=== PATIENT | male | born 1945 | race Caucasian/White ===

== ENCOUNTER 2017-08-18 12:24 | Emergency (ER) | payer OTHER ==
[~2017-08-18 12:24] MED LIST: ASPI325T PO; ATEN-100 PO; CARB0.5D16 EACH EYE; FLON0.053; LORA1TAB PO; MELA10CA2 PO; NITR0.4S SL; SIMV40 PO; TAB-TAB PO; TRAZ100 PO
[2017-08-18 12:31] VITALS: BP 145/76; PULSE 70; RESP 20; TEMP 98.6; O2SAT 97
[2017-08-18] MEDS ORDERED: SIMV40TA PO (12:38)
[2017-08-18] MEDS ORDERED: ATEN25TA PO (12:38)
[2017-08-18] MEDS ORDERED: MULTTAB67 PO (12:38)
[2017-08-18] MEDS ORDERED: ASPI-183 PO (12:38)
[2017-08-18] MEDS ORDERED: TRAZ100T10 PO (12:38)
[2017-08-18] MEDS ORDERED: LORA1TAB12 PO (12:38)
[2017-08-18] MEDS ORDERED: GABA300C5 PO (12:38)
[2017-08-18] MEDS ORDERED: MELA10TA2 (12:38)
[2017-08-18] MEDS ORDERED: FLUT50SP EACH NARE (12:38)
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
[2017-08-18] MEDS ORDERED: SODIUM CHLORIDE 0.9% FLUSH 10 ML FLUSH IV FLUSH PRN (13:00)
[2017-08-18] MEDS ORDERED: LIDOCAINE HCL 1% PF 30 ML VIAL INFIL ONE (13:00)
[2017-08-18] MEDS ORDERED: BUPIVACAINE HCL PF 0.5% 10 ML VIAL INFIL ONE (13:00)
[2017-08-18] MEDS ORDERED: LIDOCAINE HCL 1% 50 ML VIAL INFIL ONE (13:00)
[2017-08-18 13:15] VITALS: O2SAT 96
[2017-08-18] MEDS ORDERED: LIDOCAINE HCL 1% PF 10 ML VIAL INFIL ONE (13:15)
[2017-08-18 13:17] LABS: AUTOMATED NEUTROPHIL # 3.2 TH/MM3 (1.8-7.7); BASOPHIL % 0.5 % (0.0-2.0); EOSINOPHIL # 0.1 TH/MM3 (0-0.4); EOSINOPHIL % 2.5 % (0.0-4.0); HEMATOCRIT 38.4 % (39.0-51.0); HEMOGLOBIN 12.5 GM/DL (13.0-17.0); LYMPH % 22.8 % (9.0-44.0); LYMPHOCYTE # 1.1 TH/MM3 (1.0-4.8); MEAN CELL VOLUME 97.7 FL (80.0-100.0); MEAN CORPUSCULAR HEMOGLOBIN 31.9 PG (27.0-34.0); MEAN CORPUSCULAR HGB CONC 32.6 % (32.0-36.0); MEAN PLATELET VOLUME 7.1 FL (7.0-11.0); MONO % 6.9 % (0.0-8.0); MONOCYTE # 0.3 TH/MM3 (0-0.9); NEUT % 67.3 % (16.0-70.0); PLATELET COUNT 113 TH/MM3 (150-450); RED BLOOD COUNT 3.93 MIL/MM3 (4.50-5.90); RED CELL DISTRIBUTION WIDTH 11.8 % (11.6-17.2); WHITE BLOOD COUNT 4.7 TH/MM3 (4.0-11.0)
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
[2017-08-18 13:39] LABS: CALCIUM 8.8 MG/DL (8.5-10.1)
[2017-08-18 13:40] LABS: BICARBONATE 27.3 MEQ/L (21.0-32.0)
[2017-08-18 13:41] LABS: INTERNATIONAL NORMALIZED RATIO 1.1 RATIO; PROTHROMBIN TIME - PATIENT 10.7 SEC (9.8-11.6)
[2017-08-18 13:43] LABS: CREATININE 1.3 MG/DL (0.60-1.30)
[2017-08-18] MEDS ORDERED: CEPH-460 PO (14:07)
[2017-08-18] MEDS ORDERED: PERC5TAB12 PO (14:07)
== END 2017-08-18 14:38 | disposition home or self-care (01) ==
LOC: PHEFT 12:24
DX: S61.240A Puncture wound with foreign body of right index finger without damage to nail, initial encounter (principal); E78.00 Pure hypercholesterolemia, unspecified; I10 Essential (primary) hypertension; I25.10 Atherosclerotic heart disease of native coronary artery without angina pectoris; W34.00XA Accidental discharge from unspecified firearms or gun, initial encounter; Z79.899 Other long term (current) drug therapy
CPT/HCPCS: 12002; 73140; 80048; 85025; 85610; 85730; 96365; 99284; J0690